=== PATIENT | female | born 1950 | race Caucasian/White ===

== ENCOUNTER 2016-12-13 12:13 | Emergency (ER) | payer MEDICARE, BC ==
--- NOTE | 2016-12-13 13:51 | EDM.PDOC ---
ED HISTORY OF PRESENT ILLNESS - General Chief Complaint: Cardiovascular Problem Stated Complaint: HIGH BP Time Seen by Provider: 12/13/16 13:51 Source: Reports: Patient, Family History Limitations: Reports: No limitations - History of Present Illness INITIAL COMMENTS - FREE TEXT/NARRATIVE: pt arrived with a history of an episode of vomiting and then developing a very severe headache. She was found to have a bp over 200. Timing/Duration: Reports: Hour(s): Location, General: Reports: other (headache) - Related Data Allergies/ADRs: Allergies Allergy/AdvReac Type Severity Reaction Status Date / Time Sulfa (Sulfonamide Allergy Abdominal Verified 12/13/16 13:28 Antibiotics) Pain Home Meds: Home Meds Cyanocobalamin (Vitamin B-12) [Cyanocobalamin] 1,000 mcg PO DAILY 10/22/14 [ History] Isosorbide Mononitrate [Isosorbide Mononitrate ER] 120 mg PO DAILY 10/22/14 [ History] Lisinopril [Lisinopril] 10 mg PO BID 10/22/14 [History] Metoprolol Tartrate [Lopressor] 25 mg PO BID 10/22/14 [History] Naproxen 440 mg PO DAILY 10/22/14 [History] Nitroglycerin [Nitrostat] 0.4 mg SL ASDIRECTED PRN 10/22/14 [History] Simvastatin [Simvastatin] 20 mg PO BEDTIME 10/22/14 [History] traZODone 50 mg PO BEDTIME 10/22/14 [History] Aspirin 12/13/16 [History] Past Medical History Cardiovascular History: Reports: [place] - Past Surgical History Cardiovascular Surgical History: Reports: Coronary artery bypass, Coronary artery stent GI Surgical History: Reports: Bariatric procedure Social & Family History - Tobacco Use Smoking Status *Q: Never Smoker - Alcohol Use Days Per Week of Alcohol Use: 0 - Recreational Drug Use Recreational Drug Use: No ED ROS GENERAL - Review of Systems Review Of Systems: See Below Constitutional: Reports: no symptoms HEENT: Reports: No symptoms Respiratory: Reports: No Symptoms Cardiovascular: Reports: Other (bp was markedly elvated. ) Endocrine: Reports: no symptoms GI/Abdominal: Reports: No symptoms : Reports: no symptoms Musculoskeletal: Reports: no symptoms Skin: Reports: no symptoms ED EXAM, GENERAL - Physical Exam Exam: See Below Free Text/Narrative:: Pt had a severe headache and a very markedly elevated bp. Exam Limited By: No limitations General Appearance: alert, anxious, mild distress Ears: normal TMs Nose: normal inspection Throat/Mouth: Normal inspection Head: atraumatic Neck: normal inspection Respiratory/Chest: no respiratory distress Cardiovascular: regular rate, rhythm GI/Abdominal: soft, non tender (Female) Exam: Deferred Rectal (Female) Exam: Deferred Back Exam: normal inspection Extremities: normal inspection Neurological: alert, oriented, normal cognition, other (pt has a low grade headache. ) Psychiatric: normal affect Course - Vital Signs Last Recorded V/S: Last Vital Signs Temp 36.6 C 12/13/16 13:26 Pulse 58 L 12/13/16 14:34 Resp 16 12/13/16 14:34 BP 155/81 H 12/13/16 14:34 Pulse Ox 96 12/13/16 14:34 - Orders/Labs/Meds Orders: Active Orders 24 hr Category Date Time Status UA W/MICROSCOPIC [URIN] Urgent Lab 12/13/16 13:50 Uncollected Labs: Laboratory Tests 12/13/16 12/13/16 Range/Units 14:01 14:01 WBC 5.9 (4.5-11.0) K/uL RBC 4.11 (3.30-5.50) M/uL Hgb 13.1 (12.0-15.0) g/dL Hct 39.4 (36.0-48.0) % MCV 96 (80-98) fL MCH 32 H (27-31) pg MCHC 33 (32-36) % Plt Count 215 (150-400) K/uL Neut % (Auto) 72 H (36-66) % Lymph % (Auto) 19 L (24-44) % Heard % (Auto) 8 H (2-6) % Eos % (Auto) 1 L (2-4) % Baso % (Auto) 1 (0-1) % Sodium 138 L (140-148) mmol/L Potassium 4.1 (3.6-5.2) mmol/L Chloride 102 (100-108) mmol/L Carbon Dioxide 30 (21-32) mmol/L Anion Gap 10.1 (5.0-14.0) mmol/L BUN 15 (7-18) mg/dL Creatinine 0.8 (0.6-1.0) mg/dL Est Cr Clr Drug Dosing 48.34 mL/min Estimated GFR (MDRD) > 60 (>60) Glucose 165 H (74-106) mg/dL Calcium 8.7 (8.5-10.1) mg/dL Total Bilirubin 0.4 (0.2-1.0) mg/dL AST 26 (15-37) U/L ALT 32 (12-78) U/L Alkaline Phosphatase 49 (46-116) U/L Total Protein 7.1 (6.4-8.2) g/dL Albumin 3.7 (3.4-5.0) g/dL Globulin 3.4 (2.3-3.5) g/dL Albumin/Globulin Ratio 1.1 L (1.2-2.2) - Re-Assessments/Exams Free Text/Narrative Re-Assessment/Exam: 12/13/16 14:50 pt has good renal funtion. Her bs is elevated and I think she should have it rechecked. Departure - Departure Time of Disposition: 14:41 Disposition: Home, Self-Care 01 Condition: fair Clinical Impression: Hypertension Referrals: Mela Godinez PA [Primary Care Provider] - Forms: ED Department Discharge Care Plan Goals: low salt diet, have bs rechecked, increase lisinopril 15 mg qam and 10 mg q pm. keep cardiology appt. - My Orders Last 24 Hours: My Active Orders 12/13/16 13:50 UA W/MICROSCOPIC [URIN] Urgent - Assessment/Plan Last 24 Hours: My Active Orders 12/13/16 13:50 UA W/MICROSCOPIC [URIN] Urgent
[2016-12-13 14:34] VITALS: BP 155/81
== END 2016-12-13 15:00 | disposition home or self-care (01) ==
LOC: JP.ED 12:13
DX: I10 Essential (primary) hypertension (principal); I25.2 Old myocardial infarction; Z88.2 Allergy status to sulfonamides; Z79.82 Long term (current) use of aspirin; Z79.899 Other long term (current) drug therapy; Z95.1 Presence of aortocoronary bypass graft; Z95.5 Presence of coronary angioplasty implant and graft; Z98.84 Bariatric surgery status
CPT/HCPCS: 36415; 80053; 85025; 99283; 99284

== ENCOUNTER 2017-06-04 13:19 | Emergency (ER) | payer MEDICARE, BC ==
[2017-06-04 13:49] VITALS: BP 182/82
[2017-06-04] MEDS ORDERED: cefTRIAXone 1 GM, Lidocaine 1% 2.1 ML IM ONE ×2 (14:13)
--- NOTE | 2017-06-04 14:13 | EDM.PDOC ---
ED HPI GENERAL MEDICAL PROBLEM - General Chief Complaint: ENT Problem Stated Complaint: SINUS INFECTION EARS ARE HURTING Time Seen by Provider: 06/04/17 14:10 Source of Information: Reports: Patient, Family History Limitations: Reports: No Limitations - History of Present Illness INITIAL COMMENTS - FREE TEXT/NARRATIVE: pt had a very severe ear ach last nite. She then noted some bloody drainage. She has pressure today and still has slight pain. Onset: Other ( started last nite. ) Duration: Hour(s):, Other ( It is slightly better than last nite. ) Location: Reports: Other ( severe pain in the left ear. ) Associated Symptoms: Reports: Fever/Chills, Other ( Pt was chilling last nite. ) - Related Data Allergies Allergy/AdvReac Type Severity Reaction Status Date / Time Sulfa (Sulfonamide Allergy Abdominal Verified 06/04/17 13:49 Antibiotics) Pain Home Meds: Home Meds Cyanocobalamin (Vitamin B-12) [Cyanocobalamin] 1,000 mcg PO DAILY 10/22/14 [ History] Isosorbide Mononitrate [Isosorbide Mononitrate ER] 120 mg PO DAILY 10/22/14 [ History] Lisinopril [Lisinopril] 10 mg PO BID 10/22/14 [History] Metoprolol Tartrate [Lopressor] 25 mg PO BID 10/22/14 [History] Naproxen 440 mg PO DAILY 10/22/14 [History] Nitroglycerin [Nitrostat] 0.4 mg SL ASDIRECTED PRN 10/22/14 [History] Simvastatin [Simvastatin] 20 mg PO BEDTIME 10/22/14 [History] traZODone 50 mg PO BEDTIME 10/22/14 [History] Aspirin 12/13/16 [History] amLODIPine [Norvasc] 5 mg PO DAILY 06/04/17 [History] Past Medical History HEENT History: Reports: Impaired Vision Cardiovascular History: Reports: High Cholesterol, Hypertension Respiratory History: Reports: Asthma Other Respiratory History: with strong perfumes Gastrointestinal History: Reports: Other (See Below) Other Gastrointestinal History: ulcerative proctitis ??? [employer] History: Reports: Hematologic History: Reports: Anemia - Past Surgical History Cardiovascular Surgical History: Reports: Coronary Artery Bypass, Coronary Artery Stent GI Surgical History: Reports: Bariatric Procedure Female Surgical History: Reports: Other (See Below) Other Female Surgeries/Procedures: bladder surgery Social & Family History - Tobacco Use Smoking Status *Q: Former Smoker Years of Tobacco use: 20 Packs/Tins Daily: 1 Used Tobacco, but Quit: No - Caffeine Use Caffeine Use: Reports: Coffee - Alcohol Use Days Per Week of Alcohol Use: 0 - Recreational Drug Use Recreational Drug Use: No ED ROS ENT - Review of Systems Review Of Systems: See Below Constitutional: Reports: Chills, Weakness HEENT: Reports: Ear Pain, Other ( there is some drainage from the ear. ) Respiratory: Reports: No Symptoms Cardiovascular: Reports: No Symptoms Endocrine: Reports: No Symptoms GI/Abdominal: Reports: No Symptoms : Reports: No Symptoms Musculoskeletal: Reports: No Symptoms Skin: Reports: No Symptoms Neurological: Reports: No Symptoms ED EXAM, ENT - Physical Exam Exam: See Below Text/Narrative:: pt arrived with a history of bloody drainage from the rt ear. There is pressure behind the ear. Exam Limited By: No Limitations General Appearance: Alert, Anxious, Mild Distress Ears: Other ( left drum is normal. The rt drum has a large amount of fluid behind it and is red. There is a small perforation in the drum. ) Nose: Normal Inspection, Other (pt is blowing out alot of colored sputum. She is tender over the sinuses. ) Mouth/Throat: Normal Inspection Head: Atraumatic Neck: Normal Inspection Respiratory/Chest: No Respiratory Distress, Other ( Pt still does have a cough. ) GI/Abdominal: Soft, Non-Tender Course - Vital Signs Last Recorded V/S: Last Vital Signs Temp 36 C 06/04/17 13:47 Pulse 71 06/04/17 14:02 Resp 18 06/04/17 14:02 BP 182/82 H 06/04/17 13:47 Pulse Ox 941 H 06/04/17 14:02 - Orders/Labs/Meds Meds: Medications Discontinued Medications Generic Name Dose Route Start Last Admin Trade Name Freq PRN Reason Stop Dose Admin Ceftriaxone Sodium 1 gm/ 0 gm 06/04/17 14:13 Lidocaine HCl 2.1 ml IM 06/04/17 14:14 ONETIME ONE - Re-Assessments/Exams Free Text/Narrative Re-Assessment/Exam: 06/04/17 14:18 pt was given rocephen 1 gm im Departure - Departure Time of Disposition: 14:18 Disposition: Home, Self-Care 01 Condition: Fair Clinical Impression: Otitis media, Serous otitis media - Discharge Information Referrals: PCP,None [Primary Care Provider] - Forms: ED Department Discharge Care Plan Goals: be sure to have the ear rechecked by own Dr in 10 days. amoxicilin 500mg qid for the next 10 days. norco 5/325 q6h prn for pain #4
== END 2017-06-04 15:14 | disposition home or self-care (01) ==
LOC: JP.ED 13:19
DX: H65.92 Unspecified nonsuppurative otitis media, left ear (principal); J45.909 Unspecified asthma, uncomplicated; I10 Essential (primary) hypertension; E78.00 Pure hypercholesterolemia, unspecified; Z79.899 Other long term (current) drug therapy; Z98.84 Bariatric surgery status; Z87.891 Personal history of nicotine dependence; Z86.2 Personal history of diseases of the blood and blood-forming organs and certain disorders involving the immune mechanism; Z79.82 Long term (current) use of aspirin; Z95.1 Presence of aortocoronary bypass graft; Z95.5 Presence of coronary angioplasty implant and graft; Z98.890 Other specified postprocedural states; Z88.2 Allergy status to sulfonamides
CPT/HCPCS: 96372; 99283; J0696

== ENCOUNTER 2023-07-18 12:11 | Day surgery (SDC) | payer MEDICARE, BC ==
[2023-07-18] MEDS ORDERED: Lidocaine 4% Top Soln 50 ML Bottle ONE (13:15)
[2023-07-18] MEDS ORDERED: Lidocaine 2% Viscous Solution 15 ML UD ONE (13:15)
[2023-07-18] MEDS ORDERED: Propofol 200 MG/20 ML SDV ONE (13:24)
[2023-07-18 14:56] VITALS: BP 176/79; PULSE 69
== END 2023-07-18 14:45 | disposition home or self-care (01) ==
LOC: JP.ED 12:11 → JP.SDS 13:10
PROVIDERS: ATTEND Surgery
DX: T17.828A Food in other parts of respiratory tract causing other injury, initial encounter (principal); I10 Essential (primary) hypertension; J45.909 Unspecified asthma, uncomplicated; E78.00 Pure hypercholesterolemia, unspecified; Z79.82 Long term (current) use of aspirin; Z79.899 Other long term (current) drug therapy; Z88.2 Allergy status to sulfonamides; W44.8XXA Other foreign body entering into or through a natural orifice, initial encounter
CPT/HCPCS: A9270-GY; J2704